=== PATIENT | male | born 1995 | race Caucasian/White ===

== ENCOUNTER 2025-09-10 15:28 | Inpatient (IN) | payer MEDICAID ==
[~2025-09-10] VITALS: Ht 177.8 cm; Wt 68.0 kg
[2025-09-10] MEDS: IV LR 1000 ML 1,000 ML BAG IV ONE (16:50)
[2025-09-10 17:19] LABS: PLATELET COUNT (AUTO) 373 K/uL (150-450); RED BLOOD CELL COUNT(AUTO) 5.00 MIL/uL (4.5-6.0); RED CELL DISTRIBUTION WIDTH 14.8 % (11.5-15.0); WHITE BLOOD COUNT (AUTO) 17.8 K/uL (4.3-11.0)
[2025-09-10 17:31] LABS: CALCIUM, SERUM 8.9 mg/dL (8.5-10.1); CREATININE 1.7 mg/dL (0.6-1.3); SODIUM SERUM 136 mmol/L (136-145); UREA NITROGEN, BLOOD 18 mg/dL (7-18)
[2025-09-10 17:37] LABS: ALCOHOL, BLOOD < 3 mg/dL (0-10); ASPARTATE AMINOTRANSFERASE 22 U/L (15-37); TOTAL PROTEIN, SERUM 8.5 g/dL (6.4-8.2)
[2025-09-10 18:21] LABS: LYMPHOCYTES % (MANUAL) 14 % (16-48); MONOCYTES % (MANUAL) 3 % (0-11.0); NEUTROPHILS % (MANUAL) 82 (42-76)
[2025-09-10 18:22] LABS: EOSINOPHILS % (MANUAL) 1 % (0-4); PLATELET ESTIMATE ADEQUATE
[2025-09-10 18:49] LABS: APPEARANCE,URINE CLEAR (CLEAR); BLOOD, URINE 3+ Ery/uL (NEGATIVE); LEUKOCYTE ESTERASE ,URINE NEGATIVE (NEGATIVE); NITRITE, URINE NEGATIVE (NEGATIVE); UGLUCOSE TRACE mg/dL (NEGATIVE)
[2025-09-10 18:58] LABS: BARBITURATE, URINE NEGATIVE (NEGATIVE); BENZODIAZEPINE, URINE NEGATIVE (NEGATIVE); COCCAINE, URINE NEGATIVE (NEGATIVE); OPIATE, URINE NEGATIVE (NEGATIVE)
[2025-09-10 19:02] LABS: INR 0.97 (0.91-1.10)
[2025-09-10 19:05] LABS: ADD URINE CULTURE YES; COARSE GRANULAR CASTS,URINE Moderate /LPF (None Seen); SQUAMOUS EPITHELIAL CELL,UR Few /HPF (None Seen)
[2025-09-10 19:08] LABS: AMPHETAMINE, URINE POSITIVE (NEGATIVE); CANNABINOID, URINE POSITIVE (NEGATIVE)
[2025-09-10] MEDS ORDERED: MAG HYDROX/AL HYDROX/SIMETH 30 ML UDC PO PRN (23:30)
[2025-09-10] MEDS ORDERED: MAGNESIUM HYDROXIDE 30 ML UDC PO PRN (23:30)
[2025-09-10] MEDS ORDERED: ONDANSETRON HCL/PF 4 MG/2 ML VIAL IVP PRN (23:30)
[2025-09-11] VITALS (26 sets, daily range): BP systolic 116–147; BP diastolic 74–101; TEMP 97.5–98.5; O2SAT 97–100
[2025-09-11] MEDS: IV NS 0.9% 1,000 ML IV PRN (01:39)
[2025-09-11 05:12] LABS: PLATELET COUNT (AUTO) 249 K/uL (150-450); RED BLOOD CELL COUNT(AUTO) 4.40 MIL/uL (4.5-6.0); RED CELL DISTRIBUTION WIDTH 15.0 % (11.5-15.0); WHITE BLOOD COUNT (AUTO) 14.2 K/uL (4.3-11.0)
[2025-09-11 05:31] LABS: CALCIUM, SERUM 8.1 mg/dL (8.5-10.1); CREATININE 2.1 mg/dL (0.6-1.3); PHOSPHORUS 6.0 mg/dL (2.5-4.9); SODIUM SERUM 136.0 mmol/L (136-145); UREA NITROGEN, BLOOD 26.0 mg/dL (7-18)
[2025-09-11 06:07] LABS: LYMPHOCYTES % (MANUAL) 6 % (16-48); MONOCYTES % (MANUAL) 15 % (0-11.0); NEUTROPHILS % (MANUAL) 79 (42-76); PLATELET ESTIMATE ADEQUATE
[2025-09-12] MEDS: ACETAMINOPHEN 325 MG TABLET PO PRN (06:47)
[2025-09-12] MEDS ORDERED: MUPI22OI7 TP (11:06)
[2025-09-12] MEDS: MUPIROCIN OINT 2% 22 GM TUBE TP SCH (12:55)
[2025-09-12] MEDS ORDERED: MUPIROCIN OINT 2% 22 GM TUBE TP SCH (13:00)
== END 2025-09-12 13:50 | disposition home or self-care (01) | DRG 812 ==
LOC: ER 15:38 → ICU 09-11 00:08 → MED 09-11 18:20
PROVIDERS: ADMIT Nurse Practitioner Acute Care; ATTEND Nurse Practitioner Acute Care
DX: T44.5X1A Poisoning by predominantly beta-adrenoreceptor agonists, accidental (unintentional), initial encounter (principal); S06.5XAA Traumatic subdural hemorrhage with loss of consciousness status unknown, initial encounter; G92.9 Unspecified toxic encephalopathy; G90.89 Other disorders of autonomic nervous system; E83.39 Other disorders of phosphorus metabolism; N17.9 Acute kidney failure, unspecified; F19.10 Other psychoactive substance abuse, uncomplicated; T59.891A Toxic effect of other specified gases, fumes and vapors, accidental (unintentional), initial encounter; Y92.89 Other specified places as the place of occurrence of the external cause; Y92.9 Unspecified place or not applicable; D72.829 Elevated white blood cell count, unspecified; W19.XXXA Unspecified fall, initial encounter; E83.42 Hypomagnesemia
CPT/HCPCS: 36415; 70450-TC; 71045-TC; 80048-TC; 80076-TC; 81001; 83735-TC; 84100-TC; 85025-TC; 85027-TC; 85730-TC; 87081-TC; 87086-TC; A4223; A6403; G0378; G0480; J7030; J7120